=== PATIENT | female | born 1960 | race Caucasian/White ===

== ENCOUNTER 2018-08-25 00:29 | Observation (INO) ==
[2018-08-25] MEDS ORDERED: Naloxone 0.4 MG/ML INJ IVP PRN (02:26)
[2018-08-25] MEDS ORDERED: 0.9 % Sodium Chloride 1,000 ML IVC SCH (02:30)
--- NOTE | 2018-08-25 02:42 | Internal Med History&Physical ---
Date of Encounter: 08/25/18 Time of Encounter: 02:36 Internal Medicine - H&P: HPI Chief complaint: Seizure History of present illness: Ms. Wilkerson is a 58 year old female with a past medical history of hypertension, coronary artery disease, smoking history, COPD, bipolar disorder, depression, and Sabine's disease who initially presented to [facility] due to hailey nge in mental status. Per report patient presented to [facility] with odd behavior, reporting that there was Percocet in the ventilation system. Laboratory findings were notable for a sodium of 127. While at [facility] patient had a witnessed seizure. No previous history of seizures. CT scan of the head was unremarkable. Patient was given fluids and her sodium went from 127 to 129. Patient was transferred for further evaluation. When I assessed the patient, she appears to be alert oriented 3 and coherent, stating that she called the squad because of bilateral lower extremity numbness that seemed to travel up both legs. She denies any weakness per se. Patient further denies any recent illnes s, alcohol or IV drug use, or changes in her medication. Patient currently smokes 2 packs per day. Urine toxicology performed at [facility] was also unremarkable. Currently clinically stable. Past Med Surg Social Fam HX - Past Medical History Medical history: COPD, hypertension, other Additional medical history: Tevin's Dx. Psychiatric history: anxiety, bipolar, depression - Past Surgical History Additional surgical history: right foot. right wrist - Social History Smoking Status: Current every day smoker Smokeless Tobacco Status: No Alcohol use: none Drug use: none - Family History Mother Hx Family Cardiac Disorders: Yes (heart disease) Hx Family Neurologic Disorders: Yes (cva) Father Living Status: Hx Family Cardiac Disorders: Yes (mi) Sister Hx Family Autoimmune Disorders: Yes (huntingtons) Internal Medicine - H&P: Meds Amitriptyline [Elavil] 25 mg PO HS 11/10/17 [History] Lisinopril [Zestril] 10 mg PO DAILY 11/10/17 [History] diazePAM [Valium] 5 mg PO TID 11/10/17 [History] Potassium Chloride 40 meq PO ONCE #5 tab.er.prt 05/22/18 [Rx] Clopidogrel [Plavix] 75 mg PO DAILY 08/25/18 [History] Ibuprofen [Ibu] 800 mg PO TID 08/25/18 [History] Allergy/AdvReac Type Severity Reaction Status Date / Time amlodipine [From Norvasc] Allergy Anaphylaxis Verified 07/03/18 17:28 hydrocodone [From Vicodin] Allergy Vomiting Verified 07/03/18 17:28 diphenhydramine AdvReac Shakiness Verified 08/25/18 02:30 [From Benadryl] All Systems PM: A 10-system review of systems was performed and is negative for pertinent findings except as documented above in the HPI. - Constitutional Constitutional: no chills, no fever(s), no night sweats - EENT Eyes: no change in vision, no discharge, no pain, no photophobia Ears: no ear discharge, no ear pain, no tinnitus Nose, mouth and throat: no dysphagia, no nasal discharge, no neck pain, no sore throat - Cardiovascular Cardiovascular ROS IM: no chest pain, no diaphoresis, no dyspnea, no lightheadedness, no palpitations, no syncope - Respiratory Respiratory: no cough, no dyspnea, no wheezing, no excessive phlegm production - Gastrointestinal Gastrointestinal: no abdominal pain, no diarrhea, no hematemesis, no hematochezia, no melena, no nausea, no vomiting - Genitourinary Genitourinary: no change in urinary stream, no dysuria, no flank pain, no hematuria - Musculoskeletal Musculoskeletal ROS IM: no numbness, no tingling - Integumentary Integumentary IM: no rash, no unusual bruising - Neurological Neurological ROS: no confusion, no convulsions, no focal weakness, no numbness, no tingling, no tremor(s) - Hematologic/Lymphatic Hematologic/Lymphatic: no easy bruising - Constitutional Exam: General: Alert and oriented 3 Skin:Normal color, no rash, no lesions. HEENT:EOM, pupils equal, round and reactive. Cardiovascular:Normal S1 & S2, no rubs, murmurs or gallops. No JVD. Pulse regular. Lungs:Normal breath sounds, no wheezes or crackles. Abdomen:Soft, non-tender, no rigidity. Extremities:No deformity, no edema or tenderness, no joint swelling or clubbing. Neurological:Normal cognition and motor skills. Cranial nerves II through XII intact. No dysmetria. Muscle strength in the upper and lower extremities 5 out of 5 bilaterally Pulses:Carotid and radial pulses normal +2. Rest of the physical exam is non contributory Internal Med - H&P Results - Labs CBC & Chem 7: 08/25/18 02:49 08/25/18 02:49 - Assessment and plan (1) Seizure Current Visit: Yes Status: Acute Assessment and plan: New-onset seizure disorder in the setting of mild hyponatremia 127. CT scan of the head was unremarkable. Patient denies any history of alcohol or drug use. Urine toxicology was negative. No reports of recent illness or changes in her medication. She is on amitriptyline and Valium. Patient currently neurol ogically intact and alert oriented 3. Sodium is improved to 130. No other electrolyte abnormalities. Low suspicion for stroke. Bilateral reported lower extremity numbness appears to have resolved. -We will continue neuro checks -Seizure precautions -PRN Ativan -Slowly correct sodium. -We will obtain MRI of the brain to rule out any structural abnormalities. -Neurology consult. (2) Hyponatremia Current Visit: Yes Status: Acute Assessment and plan: Patient found to have a sodium of 127 as well as hypochloremia. Sodium now 130. She does report poor by mouth intake. -Continue gentle hydration with normal saline. -Repeat sodium -We will obtain urine studies (3) Delirium Current Visit: Yes Status: Acute Assessment and plan: Patient has a history of bipolar disorder and Sabine's disease. Currently does not display evidence of delirium or psychosis. Unclear of hyponatremia contributing to patient's reported odd behavior. Mental status does however seem to be improved after slight correction of her sodium. TSH did appear to be slightly low per lab work obtained at [facility]. We will repeat TSH here. -Would appreciate psych consult. (4) Hypertension Current Visit: Yes Status: Acute Assessment and plan: Blood pressure stable. Monitor Qualifiers: Hypertension type: unspecified Qualified Code(s): I10 - Essential (primary) hypertension (5) COPD (chronic obstructive pulmonary disease) Current Visit: Yes Status: Acute Assessment and plan: History of COPD. Patient does not appear to be in acute exacerbation. Qualifiers: Emphysema type: unspecified Qualified Code(s): J43.9 - Emphysema, unspecified (6) DVT prophylaxis Current Visit: Yes Status: Acute Assessment and plan: Subcutaneous heparin - Time Spent With Patient Total time spent is greater than 50% in coordination of care (as documented) at patient's floor/unit and/or counseling patient:
[2018-08-25] MEDS ORDERED: Acetaminophen 325 MG TABLET PO PRN (02:54)
[2018-08-25] MEDS ORDERED: *HR* LORazepam 2 MG/ML VIAL IVP PRN (02:54)
[2018-08-25 03:13] LABS: Basophils % 0.3 %; Eosinophils % 0.1 %; Hematocrit 38.2 % (35.3-44.9); Hemoglobin 13.7 g/dL (11.5-15.4); Immature Granulocytes % 0.4 % (0-4); Lymphocytes # 1.4 K/mcL (0.6-4.6); Lymphocytes % 12.1 %; Mean Corpuscular HGB Conc 35.9 g/dL (31.6-35.5); Mean Corpuscular Hemoglobin 32.7 pg (28.0-33.3); Mean Corpuscular Volume 91.2 fL (83.0-100.0); Mean Platelet Volume 11.1 fL (9.4-12.4); Monocytes # 1.1 K/mcL (0.0-1.3); Monocytes % 9.3 %; Neutrophils # 8.8 K/mcL (1.6-8.9); Platelet Count 244 K/mcL (140-400); Red Blood Count 4.19 M/mcL (3.82-4.97); Red Cell Distribution Width 11.6 % (11.5-14.5); Segmented Neutrophils % 77.8 %
[2018-08-25 03:24] LABS: INR 0.9; Prothrombin Time 10.6 Seconds (9.4-12.1)
[2018-08-25 03:29] LABS: Alanine Aminotransferase 18 Units/L (7-52); Albumin 3.9 g/dL (3.5-5.7); Albumin/Globulin Ratio 2.2 (1.1-2.2); Alkaline Phosphatase 86 Units/L (34-104); Aspartate Amino Transferase 55 Units/L (13-39); BUN/Creatinine Ratio 12 (6-26); Bilirubin,Total 1.5 mg/dL (0.3-1.0); Blood Urea Nitrogen 6 mg/dL (6-20); Calcium 9.2 mg/dL (8.6-10.3); Carbon Dioxide 23 mEq/L (23-29); Chloride 97 mEq/L (98-107); Globulin 1.8 g/dL (2.4-3.5); Glucose 61 mg/dL (70-105); Magnesium 1.8 mg/dL (1.6-2.6); Osmolality,Calculated 266 (280-300); Phosphorous 4.5 mg/dL (2.7-4.5); Sodium 130 mEq/L (136-145); Total Protein 5.7 g/dL (6.4-8.9); eGFR For Non-African Americans > 60 (> 60)
[2018-08-25 03:30] LABS: Troponin I < 0.03 ng/mL (< 0.04)
[2018-08-25 05:38] LABS: Thyroid Stimulating Hormone 0.223 mcIU/mL (0.340-5.600)
[2018-08-25] MEDS: Ibuprofen 800 MG TABLET PO SCH ×2 (05:45→07:54)
[2018-08-25] MEDS ORDERED: *HR* Heparin 5,000 UNIT/ML VIAL SQ SCH (06:00)
[2018-08-25] MEDS ORDERED: Dextrose Gel 15 GM/37.5 ML TUBE PO PRN ×2 (06:09)
[2018-08-25] MEDS ORDERED: *HR* Dextrose 50 % in Water (Syg) 50 ML SYRINGE IVP PRN (06:09)
[2018-08-25] MEDS ORDERED: D5% in Water 1,000 ML IVC PRN (06:09)
[2018-08-25 07:51] VITALS: BP 99/71
[2018-08-25] MEDS ORDERED: Nicotine 14 MG PATCH.TD24 TD SCH (09:00)
[2018-08-25] MEDS ORDERED: diazePAM 5 MG TABLET PO SCH (09:00)
--- NOTE | 2018-08-25 09:14 | Neurology - Consult Note ---
Date of Encounter: 08/25/18 Time of Encounter: 08:15 Assessment and Plan (1) Witnessed seizure-like activity Status: Acute Patient seemed to have a witnessed seizure-like activity while in the emergency room she denies any history of seizures in the past she did have significantly low-sodium perhaps the main precipitating factor. We will review the EEG at the same time suggest imaging studies sodium need to be corrected but slowly to a wide any CPM Continue to monitor for any cardiac arrhythmias or any other seizure-like activity Other treatment is as per primary team No other focal findings noted on examination and the clinical context it could be related to the hyponatremia strongly recommend that we should continue to treat underlying metabolic abnormalities. As far as diagnosis of Napoleon is concern patient not sure that she even have any testing done or not she denies being seen by any neurologist. I did reviewed her ECW , record there was no past medical history of Tevin disease reported neither any blood test with the diagnosis of Tevin disea se. On examination also did not see any typical Tevin Chorea. It is a concern patient need to be evaluated in the neurology clinic for further detailed family history as well as workup it is a concern off HD (2) Hyponatremia Status: Acute History of Present Illness HPI: Ms. Wilkerson is a 58 year old female with past medical history of hypertension, coronary artery disease, smoking history, COPD, bipolar disorder, depression, and ?? histor of Napoleon's disease, who initially presented to [facility] due to change in mental status. Per report patient presented to [facility] with odd behavior, reporting that there was Percocet in the ventilation system. she was found to have low sodium of 127. While at [facility] patient had a witnessed seizure. No previous history of seizures. CT scan of the head was unremarkable. Patient was given fluids and her sodium went from 127 to 129. Patient was transferred for further evaluation. Pt is now alert oriented 3 . She denies any weakness per se. Patient further denies any recent illness, alcohol or IV drug use, or changes in her medication. Patient currently smokes 2 packs per day. she is not able to give much info about her diagnosis of HD. Past Med Surg Social Fam HX - Past Medical History Medical history: COPD, hypertension, other Additional medical history: Napoleon's Dx. Psychiatric history: anxiety, bipolar, depression - Past Surgical History Additional surgical history: right foot. right wrist - Social History Smoking Status: Current every day smoker Smokeless Tobacco Status: No Alcohol use: none Drug use: none - Family History Mother Hx Family Cardiac Disorders: Yes (heart disease) Hx Family Neurologic Disorders: Yes (cva) Father Living Status: Hx Family Cardiac Disorders: Yes (mi) Sister Hx Family Autoimmune Disorders: Yes (huntingtons) Medications and Allergies Amitriptyline [Elavil] 25 mg PO HS 11/10/17 [History] Lisinopril [Zestril] 10 mg PO DAILY 11/10/17 [History] diazePAM [Valium] 5 mg PO TID 11/10/17 [History] Albuterol Sulfate [Ventolin Hfa] 1 - 2 puff IN QID PRN 08/25/18 [History] Clopidogrel [Plavix] 75 mg PO DAILY 08/25/18 [History] Diphenoxylate/Atropine [Lomotil 2.5 mg/0.025 mg] 1 tab PO QID PRN 08/25/18 [History] Ibuprofen [Ibu] 800 mg PO Q8H PRN 08/25/18 [History] Magnesium Oxide [Magnesium] 250 mg PO DAILY 08/25/18 [History] Potassium Chloride [K-Tab ER] 20 meq PO DAILY 08/25/18 [History] Allergy/AdvReac Type Severity Reaction Status Date / Time amlodipine [From Norvasc] Allergy Anaphylaxis Verified 07/03/18 17:28 hydrocodone [From Vicodin] Allergy Vomiting Verified 07/03/18 17:28 diphenhydramine AdvReac Shakiness Verified 08/25/18 02:30 [From Benadryl] All Systems: The remainder of the systems were reviewed and are negative Physical Examination - Vital Signs Vital Signs: Initial Vital Signs Temp Pulse Resp BP Pulse Ox 98.7 F 82 16 117/70 95 08/25/18 03:39 08/25/18 03:39 08/25/18 03:39 08/25/18 03:39 08/25/18 03:39 - Exam Exam: GENERAL: Comfortable in no acute distress HEENT: Normal LUNGS: CTA HEART: RRR, S1 S2 Audible, no murmur EXTREMITIES: No Pedal edema. DETAILED NEUROLOGICAL EXAMINATION: MENTAL STATUS: Oriented to person, place, date and situation. Recent Memory Intact, Attention span is normal , Feels tired aloof did not want to talk much about eating breakfast Cranial Nerve Examination: CN - II: Visual Acuity, Field of Vision Normal, Fundus examination: No disk edema, Pupils- size shape reaction to light and accommodation: All normal. CN III, IV, : External ocular movements were intact, Pupils were reactive, Nodrooping of the eyelids CN V: Sensation over the face to light touch and pinprick all normal. Corneal reflexes not tested, jaw jerk normal. CN VII: No facial asymmetry, no flattening of nasolabial folds, no difficulty in closing the eyes, no loss of forehead wrinkles, no difficulty in eye-closure, frowning raising eyebrows. CNVIII: No significant hearing loss CN IX, X: Uvula centralized not deviated, Gag reflex: Not tested CN X1: Sternocleidomastoid, trapezius, normal or evidence of any weakness. CN X11: No Dysarthria, no wasting or fibrilation f tongue muscles, no deviation, tongue muscle strength normal. Motor examination: No hypertrophy, tone was normal, power grade 0-5 Upper limbs Proximal- No difficulty in lifting the arms above the head. Distal- No weakness in distal muscles On formal testing 5/5 all over Lower limbs On formal testing 5/5 all over Coordination: [id number] normal. Target pursuit normal finger tapping normal, Rapid alternating moment of wrist normal Sensory system: Superficial sensations- Touch normal. Pain- Pinprick, Temperature all normal, Deep sensation normal, Joint position sense normal. Cortical sensation, Tactile discrimination, localization and extinction all normal. Deep tendon reflexes. Symmetrical bilateral, No evidence of Babinski. No sign of meningeal irritation Gait Examination: Deferred - Constitutional General appearance: comfortable Results - Laboratory Findings CBC and BMP: 08/25/18 02:49 08/25/18 02:49 Abnormal lab findings: Abnormal lab results WBC 11.4 K/mcL (4.3-11.1) H 08/25/18 02:49 MCHC 35.9 g/dL (31.6-35.5) H 08/25/18 02:49 Sodium 130 mEq/L (136-145) L 08/25/18 02:49 Chloride 97 mEq/L (98-107) L 08/25/18 02:49 Creatinine 0.51 mg/dL (0.60-1.20) L 08/25/18 02:49 Glucose 61 mg/dL (70-105) L 08/25/18 02:49 Calculated Osmolality 266 (280-300) L 08/25/18 02:49 Total Bilirubin 1.5 mg/dL (0.3-1.0) H 08/25/18 02:49 AST 55 Units/L (13-39) H 08/25/18 02:49 Creatine Kinase 265 Units/L (30-223) H 08/25/18 02:49 Serum Total Protein 5.7 g/dL (6.4-8.9) L 08/25/18 02:49 Globulin 1.8 g/dL (2.4-3.5) L 08/25/18 02:49 TSH 0.223 mcIU/mL (0.340-5.600) L 08/25/18 02:49 Consult Discharge Plan - Plan Instructions: Hyponatremia (DC) Referrals: Raj Dawson MD [Partnered Physician] - (referral made for follow up in 2-3 weeks) NONE,PCP [Primary Care Provider] - Virginia Perez MD [Non-Partnered Physician] - 09/02/18 10:00 am
--- NOTE | 2018-08-25 09:54 | Discharge Summary ---
<Gillian Kilgore P - Last Filed: 08/25/18 10:10> - NOTES TO OUTPATIENT PROVIDER Notes to Outpatient Provider: *The patient will follow-up with primary care provider within a week. *Patient with follow-up with the neurologist within 23 weeks. *She will do EEG in outpatient visit with neurologist and does not want to do MRI. *The patient will not drive her car for now. Orders not resulted at time of discharge: Pending orders 08/25/18 02:26 Urinalysis reflex Microscopic [URIN] Routine 08/25/18 02:33 Urine tox screen [Drug Screen, Urine] [UCHEM] Routine 08/25/18 02:34 MR head/brain wo con [MR] Routine Date of Encounter: 08/25/18 Time of Encounter: 08:45 - Discharge Diagnosis (1) Witnessed seizure-like activity Priority: Primary Status: Acute (2) Hyponatremia Priority: Primary Status: Acute (3) COPD (chronic obstructive pulmonary disease) Priority: Secondary Status: Chronic Qualifiers: Emphysema type: unspecified Qualified Code(s): J43.9 - Emphysema, unspecified (4) CAD (coronary artery disease) Priority: Secondary Status: Chronic Qualifiers: Coronary Disease-Associated Artery/Lesion type: unspecified vessel or lesion type Associated angina: angina presence unspecified Qualified Code(s): I25.10 - Atherosclerotic heart disease of [place] coronary artery without angina pectoris (5) DVT prophylaxis Priority: Primary Status: Suspected Hospital course: Ms. Wilkerson is a 58 year old female with past medical history of COPD, hypertension, Tevin's disease,, bipolar disorder, depression, CAD, COPD, chronic smoker presented for altered mental status , odd behavior and witnessed seizure in [facility]. Her CT scan of head done in ED was unremarkable and serum sodium was 127. She was referred to this hospital and she was admitted in inpatient for further workup and management. The patient has had dehydration and low serum sodium level and after IV fluid the serum sodium level came up to 130 and dehydration has been resolved. Neurology consultation has been done and suggested EEG. The patient wants to go home and we will do EEG during her outpatient visit with neurologist. Today patient is stable, well oriented to time, place and person not in acute distress. She does not have any seizure right now. Her vitals are stable. The patient is requesting to go home and she does not like to do he MRI because of cost. We are sending her home and she will follow-up with primary care provider within a week and neurology physician within 2 to 3 week. We have counseled about quitting smoking but she is not ready to do that. - Time Spent with Patient Total time spent providing and/or coordinating discharge services: - Discharge Medications Home Medications: RX: Amitriptyline [Elavil] 25 mg PO HS 11/10/17 [History] RX: Lisinopril [Zestril] 10 mg PO DAILY 11/10/17 [History] RX: diazePAM [Valium] 5 mg PO TID 11/10/17 [History] RX: Albuterol Sulfate [Ventolin Hfa] 1 - 2 puff IN QID PRN 08/25/18 [History] RX: Clopidogrel [Plavix] 75 mg PO DAILY 08/25/18 [History] RX: Diphenoxylate/Atropine [Lomotil 2.5 mg/0.025 mg] 1 tab PO QID PRN 08/25/18 [History] RX: Ibuprofen [Ibu] 800 mg PO Q8H PRN 08/25/18 [History] RX: Magnesium Oxide [Magnesium] 250 mg PO DAILY 08/25/18 [History] RX: Potassium Chloride [K-Tab ER] 20 meq PO DAILY 08/25/18 [History] Allergies/Adverse Reactions: Allergy/AdvReac Type Severity Reaction Status Date / Time amlodipine [From Norvasc] Allergy Anaphylaxis Verified 07/03/18 17:28 hydrocodone [From Vicodin] Allergy Vomiting Verified 07/03/18 17:28 diphenhydramine AdvReac Shakiness Verified 08/25/18 02:30 [From Benadryl] Date of admission: 08/25/18 02:03 Primary care physician: PCP NONE Consults: 08/25/18 02:25 Consult to Neurology [CONS] Routine Consulting Provider: [facility] Reason for Consult: New onset seizure in the setting of hyponatremia. Call Completed: No Consult to Psychiatry [CONS] Routine Consulting Provider: Psychiat[facility] Reason consult: Altered mental status - Constitutional Vitals: Temp Pulse Resp BP Pulse Ox 98.6 F 90 16 99/71 96 08/25/18 07:49 08/25/18 07:49 08/25/18 07:49 08/25/18 07:49 08/25/18 08:10 General appearance: Present: A&O X 3, no acute distress, answers questions appropriately Exam: :Geneal Alert and oriented 3 Skin:Normal color, no rash, no lesions. HEENT:EOM, pupils equal, round and reactive. Cardiovascular:Normal S1 & S2, no rubs, murmurs or gallops. No JVD. Pulse regular. Lungs:Normal breath sounds, no wheezes or crackles. Abdomen:Soft, non-tender, no rigidity. Extremities:No deformity, no edema or tenderness, no joint swelling or clubbing. Neurological:Normal cognition and motor skills. Cranial nerves II through XII intact. No dysmetria. Muscle strength in the upper and lower extremities 5 out of 5 bilaterally Pulses:Carotid and radial pulses normal +2. Rest of the physical exam is non contributory - Patient Status Disposition: Home, Self-Care Condition: Fair Overall status at discharge: patient is progressing back to baseline - Discharge Instructions Instructions: Hyponatremia (DC) Follow Up With: Raj Dawson MD [Partnered Physician] - (referral made for follow up in 2-3 weeks) NONE,PCP [Primary Care Provider] - Virginia Perez MD [Non-Partnered Physician] - 09/02/18 10:00 am - Diet and Activity Activity: resume usual activities as tolerated Diet: low fat, low cholesterol <Thallapaneni,Rambabu - Last Filed: 08/25/18 14:21> Orders not resulted at time of discharge: Pending orders 08/25/18 02:26 Urinalysis reflex Microscopic [URIN] Routine 08/25/18 02:33 Urine tox screen [Drug Screen, Urine] [[facility]] Routine Date of Encounter: 08/25/18 - Discharge Diagnosis (1) Seizure Status: Acute (2) Hyponatremia Status: Acute (3) Delirium Status: Acute (4) DVT prophylaxis Status: Suspected (5) Hypertension Status: Acute Qualifiers: Hypertension type: unspecified Qualified Code(s): I10 - Essential (primary) hypertension (6) COPD (chronic obstructive pulmonary disease) Status: Chronic Qualifiers: Emphysema type: unspecified Qualified Code(s): J43.9 - Emphysema, unspecified Hospital course: Ms. Wilkerson is a 58 year old female - Time Spent with Patient Total time spent providing and/or coordinating discharge services: Date of admission: 08/25/18 02:03 Primary care physician: PCP NONE Consults: 08/25/18 02:25 Consult to Neurology [CONS] Routine Consulting Provider: Neu[facility] Reason for Consult: New onset seizure in the setting of hyponatremia. Call Completed: No Consult to Psychiatry [CONS] Routine Consulting Provider: Psychiat[facility] [facility] Reason consult: Altered mental status - Constitutional Vitals: Temp Pulse Resp BP Pulse Ox 98.6 F 90 16 99/71 96 08/25/18 07:49 08/25/18 07:49 08/25/18 07:49 08/25/18 07:49 08/25/18 08:10 - Attending Attestation I examined this patient and my medical decision-making was reviewed with the Resident Physician Dr. Kilgore. I agree with the documented findings, disposition and treatment plan as described except to the extent set forth below. Ms. Wilkerson is a 58 year old female with a past medical history of hypertension, coronary artery disease, smoking history, COPD, bipolar disorder, depression, and [place]'s disease who initially presented to [facility] due to change in mental status and generalized weakness Per report patient presented to [facility] with odd behavior. Laboratory findings were notable for a sodium of 127. While at [facility] patient had a witnessed seizure. No previous history of seizures. CT scan of the head was unremarkable. Patient was given fluids and her sodium went from 127 to 129. Patient was transferred to our facility for further evaluation. Patient was admitted in the hospital and placed her on IV hydration. Her sodium improved to 130. Patient was evaluated by neurologist who recommend further workup EEG and MRI. However patient refused to go for any of studies, since she is worried about hospital bills. She wanted to have this studies done as an out pt through her PCP. She adamantly refused to have any further work up and wanted to leave today. I did talk to pt's son at bed side along with pt, pt still refused to have any further work up. I did ask the pt not to drive until she f/u with PCP and Neurology in 1 week. Her seizure might be due to hyponatremia and it was first episode too, so she does not need to be on any anticonvulsant medications. Gen: A, A, O x3 Chest: Diminished BS b/l No crackles, No rales Heart: S1S2+ RRR
== END 2018-08-25 10:34 | disposition home or self-care (01) ==
LOC: 3BNU
PROVIDERS: ADMIT Internal Medicine; ATTEND Internal Medicine

== ENCOUNTER 2020-05-11 17:54 | Inpatient (IN) ==
[2020-05-11] MEDS ORDERED: 0.9 % Sodium Chloride 1,000 ML IV ONE (18:54)
[2020-05-11] MEDS ORDERED: Ondansetron 4 MG/2 ML VIAL IVP ONE (18:55)
[2020-05-11 19:23] LABS: Basophils % 0.2 %; Eosinophils % 0.2 %; Hematocrit 48.7 % (35.3-44.9); Hemoglobin 16.4 g/dL (11.5-15.4); Immature Granulocytes % 0.2 % (0-4); Lymphocytes # 1.5 K/mcL (0.6-4.6); Lymphocytes % 12.2 %; Mean Corpuscular HGB Conc 33.7 g/dL (31.6-35.5); Mean Corpuscular Hemoglobin 30.9 pg (28.0-33.3); Mean Corpuscular Volume 91.7 fL (83.0-100.0); Mean Platelet Volume 10.7 fL (9.4-12.4); Monocytes % 8.5 %; Neutrophils # 9.6 K/mcL (1.6-8.9); Platelet Count 319 K/mcL (140-400); Red Blood Count 5.31 M/mcL (3.82-4.97); Red Cell Distribution Width 12.1 % (11.5-14.5); Segmented Neutrophils % 78.7 %; White Blood Count 12.2 K/mcL (4.3-11.1)
[2020-05-11 19:36] LABS: Bilirubin,Urine Negative (Negative); Blood,Urine Negative (Negative); Clarity,Urine Clear (Clear); Color,Urine Colorless (Yellow); Glucose,Urine (UA) Normal (Normal); Ketones,Urine Negative (Negative); Leukocyte Esterase,Urine Negative (Negative); Nitrite,Urine Negative (Negative); Protein,Urine Negative (Neg-Trace); Specific Gravity,Urine 1.005 (1.010-1.025); Urobilinogen,Urine Normal (Normal)
[2020-05-11 19:44] LABS: Acetaminophen < 10 mcg/mL (10-20); Alanine Aminotransferase 12 Units/L (7-52); Albumin 5.2 g/dL (3.5-5.7); Albumin/Globulin Ratio 1.7 (1.1-2.2); Alkaline Phosphatase 103 Units/L (34-104); Aspartate Amino Transferase 56 Units/L (13-39); BUN/Creatinine Ratio 10 (6-26); Bilirubin,Direct 0.1 mg/dL (0.0-0.2); Bilirubin,Total 1.1 mg/dL (0.3-1.0); Blood Urea Nitrogen 6 mg/dL (6-20); Calcium 10.8 mg/dL (8.6-10.3); Carbon Dioxide 30 mEq/L (23-29); Chloride 95 mEq/L (98-107); Chol/HDL Ratio 2.6 (0-4.9); Cholesterol 207 mg/dL (< 200); Ethanol < 10 mg/dL (Less than 10); Globulin 3.1 g/dL (2.4-3.5); Glucose 96 mg/dL (70-105); HDL Cholesterol 80 mg/dL (40-59); LDL Cholesterol,Calculated 108 mg/dL (< 100); Lipase 16 Units/L (11-82); Osmolality,Calculated 275 (280-300); Potassium 4.3 mEq/L (3.5-5.1); Salicylate < 2.5 mg/dL (15.0-30.0); Sodium 134 mEq/L (136-145); Total Protein 8.3 g/dL (6.4-8.9); Triglycerides 94 mg/dL (< 150); eGFR For African Americans > 60 (> 60); eGFR For Non-African Americans > 60 (> 60)
[2020-05-11 19:51] LABS: Amphetamine Screen,Urine Negative ng/mL (Cutoff=1000); Barbiturate Screen,Urine Negative ng/mL (Cutoff=200); Benzodiazepines Screen,Urine Positive ng/mL (Cutoff=200); Cannabinoid Screen,Urine Negative ng/mL (Cutoff = 50); Cocaine Screen,Urine Negative ng/mL (Cutoff= 300); Opiate Screen,Urine Positive ng/mL (Cutoff=300); Phencyclidine Screen,Urine Negative ng/mL (Cutoff=25)
[2020-05-11 19:53] LABS: Estimated Average Glucose 117 mg/dl
[2020-05-11] MEDS ORDERED: Isovue-370 500 ML BOTTLE IVP ONE (20:42)
[2020-05-11] MEDS ORDERED: Promethazine 12.5 MG in 0.9 % Sodium Chloride 50 ML IVPB PRN (23:27)
[2020-05-12] MEDS ORDERED: Ondansetron 4 MG/2 ML VIAL IVP PRN (00:58)
[2020-05-12] MEDS ORDERED: Naloxone 0.4 MG/ML INJ IVP PRN (00:58)
[2020-05-12 02:08] LABS: Basophils % 0.2 %; Eosinophils % 0.3 %; Immature Granulocytes % 0.2 % (0-4); Lymphocytes # 1.6 K/mcL (0.6-4.6); Lymphocytes % 18.2 %; Mean Corpuscular HGB Conc 33.6 g/dL (31.6-35.5); Mean Corpuscular Hemoglobin 30.9 pg (28.0-33.3); Mean Corpuscular Volume 92.1 fL (83.0-100.0); Mean Platelet Volume 10.6 fL (9.4-12.4); Monocytes # 0.9 K/mcL (0.0-1.3); Monocytes % 9.9 %; Neutrophils # 6.2 K/mcL (1.6-8.9); Platelet Count 264 K/mcL (140-400); Red Blood Count 4.56 M/mcL (3.82-4.97); Red Cell Distribution Width 12.4 % (11.5-14.5); Segmented Neutrophils % 71.2 %; White Blood Count 8.7 K/mcL (4.3-11.1)
[2020-05-12 02:11] LABS: Hemoglobin 14.1 g/dL (11.5-15.4)
[2020-05-12 02:12] LABS: Prothrombin Time 11.9 Seconds (9.4-12.1)
[2020-05-12 02:27] LABS: Alanine Aminotransferase 11 Units/L (7-52); Albumin/Globulin Ratio 1.7 (1.1-2.2); Alkaline Phosphatase 91 Units/L (34-104); Aspartate Amino Transferase 42 Units/L (13-39); BUN/Creatinine Ratio 12 (6-26); Bilirubin,Total 1.1 mg/dL (0.3-1.0); Blood Urea Nitrogen 6 mg/dL (6-20); Calcium 9.2 mg/dL (8.6-10.3); Carbon Dioxide 26 mEq/L (23-29); Chloride 104 mEq/L (98-107); Globulin 2.3 g/dL (2.4-3.5); Glucose 84 mg/dL (70-105); Magnesium 1.9 mg/dL (1.6-2.6); Osmolality,Calculated 283 (280-300); Phosphorous 3.7 mg/dL (2.7-4.5); Potassium 4.2 mEq/L (3.5-5.1); Sodium 138 mEq/L (136-145); Total Protein 6.3 g/dL (6.4-8.9); eGFR For African Americans > 60 (> 60); eGFR For Non-African Americans > 60 (> 60)
[2020-05-12] MEDS ORDERED: Albuterol 2.5 MG/3 ML NEBULIZER IH PRN (07:55)
[2020-05-12] MEDS ORDERED: diazePAM 5 MG TABLET PO SCH (09:00)
[2020-05-12] MEDS: Aspirin Enteric Coated 81 MG Tablet PO SCH (10:07)
[2020-05-12] MEDS: lisinopriL 10 MG TABLET PO SCH (10:07)
[2020-05-12] MEDS: Nicotine 14 MG PATCH.TD24 TD SCH (12:00)
[2020-05-12] MEDS: ALPRAZolam 1 MG TABLET PO ONE ×2 (13:31→13:33)
[2020-05-12] MEDS: QUEtiapine Fumarate 25 MG TABLET PO SCH (21:28)
[2020-05-13] MEDS: QUEtiapine Fumarate 25 MG TABLET PO SCH ×2 (09:08→20:26)
[2020-05-13] MEDS: Aspirin Enteric Coated 81 MG Tablet PO SCH (09:08)
[2020-05-13] MEDS: Nicotine 14 MG PATCH.TD24 TD SCH (09:08)
[2020-05-13] MEDS: lisinopriL 10 MG TABLET PO SCH (09:08)
[2020-05-13] MEDS: Metoprolol XL (24 HR) Succ 25 MG TAB.ER.24H PO SCH (11:10)
[2020-05-13] MEDS ORDERED: *HR* LORazepam 2 MG/ML VIAL IVP ONE ×2 (16:55→23:18)
[2020-05-13] MEDS ORDERED: Valproic Acid INJ 1,000 MG in 0.9 % Sodium Chloride 100 ML IVPB STA (16:56)
[2020-05-13] MEDS: *HR* Heparin 5,000 UNIT/ML VIAL SQ SCH (17:44)
[2020-05-14] MEDS ORDERED: QUEtiapine Fumarate 25 MG TABLET PO ONE (00:56)
[2020-05-14] MEDS: *HR* Heparin 5,000 UNIT/ML VIAL SQ SCH ×2 (06:20→16:20)
[2020-05-14] MEDS ORDERED: Valproic Acid INJ 500 MG in 0.9 % Sodium Chloride 100 ML IVPB SCH (10:00)
[2020-05-14] MEDS: Metoprolol XL (24 HR) Succ 25 MG TAB.ER.24H PO SCH (10:18)
[2020-05-14] MEDS: Aspirin Enteric Coated 81 MG Tablet PO SCH (10:19)
[2020-05-14] MEDS: Nicotine 14 MG PATCH.TD24 TD SCH (10:19)
[2020-05-14] MEDS: QUEtiapine Fumarate 25 MG TABLET PO SCH (10:19)
[2020-05-14] MEDS: lisinopriL 10 MG TABLET PO SCH (10:20)
[2020-05-14] MEDS: Valproic Acid INJ 500 MG in 0.9 % Sodium Chloride 100 ML IVPB SCH ×2 (13:04→23:56)
[2020-05-14 13:24] LABS: Basophils % 0.1 %; Eosinophils % 0.2 %; Hemoglobin 15.2 g/dL (11.5-15.4); Immature Granulocytes % 0.3 % (0-4); Lymphocytes # 1.3 K/mcL (0.6-4.6); Lymphocytes % 14.3 %; Mean Corpuscular HGB Conc 33.8 g/dL (31.6-35.5); Mean Corpuscular Hemoglobin 31.2 pg (28.0-33.3); Mean Corpuscular Volume 92.4 fL (83.0-100.0); Mean Platelet Volume 10.8 fL (9.4-12.4); Monocytes # 0.5 K/mcL (0.0-1.3); Neutrophils # 6.9 K/mcL (1.6-8.9); Platelet Count 295 K/mcL (140-400); Red Blood Count 4.87 M/mcL (3.82-4.97); Segmented Neutrophils % 79.1 %; White Blood Count 8.8 K/mcL (4.3-11.1)
[2020-05-14 13:49] LABS: BUN/Creatinine Ratio 21 (6-26); Blood Urea Nitrogen 12 mg/dL (6-20); Calcium 9.4 mg/dL (8.6-10.3); Carbon Dioxide 23 mEq/L (23-29); Chloride 101 mEq/L (98-107); Glucose 174 mg/dL (70-105); Magnesium 1.8 mg/dL (1.6-2.6); Osmolality,Calculated 286 (280-300); Phosphorous 4.4 mg/dL (2.7-4.5); Potassium 3.7 mEq/L (3.5-5.1); Sodium 136 mEq/L (136-145); eGFR For African Americans > 60 (> 60); eGFR For Non-African Americans > 60 (> 60)
[2020-05-14 13:57] LABS: Thyroid Stimulating Hormone 0.35 mcIU/mL (0.340-5.600)
[2020-05-14] MEDS ORDERED: diazePAM 5 MG TABLET PO ONE ×2 (15:46→23:56)
[2020-05-14] MEDS: *HR* LORazepam 2 MG/ML VIAL IVP SCH (15:52)
[2020-05-14] MEDS ORDERED: *HR* LORazepam 2 MG/ML VIAL IVP ONE (21:11)
[2020-05-15] MEDS: QUEtiapine Fumarate 25 MG TABLET PO SCH ×3 (02:34→08:51)
[2020-05-15] MEDS: *HR* Heparin 5,000 UNIT/ML VIAL SQ SCH (05:54)
[2020-05-15 06:33] VITALS: BP 115/81
[2020-05-15] MEDS: Metoprolol XL (24 HR) Succ 25 MG TAB.ER.24H PO SCH ×2 (08:30→08:51)
[2020-05-15] MEDS: Aspirin Enteric Coated 81 MG Tablet PO SCH ×2 (08:30→08:46)
[2020-05-15] MEDS: Valproic Acid INJ 500 MG in 0.9 % Sodium Chloride 100 ML IVPB SCH ×2 (08:31→08:51)
[2020-05-15] MEDS: *HR* LORazepam 2 MG/ML VIAL IVP SCH ×2 (08:31→08:46)
[2020-05-15] MEDS: Nicotine 14 MG PATCH.TD24 TD SCH (08:33)
[2020-05-15] MEDS ORDERED: *HR* OxyCODONE/APAP 7.5/325 TABLET PO PRN (09:05)
[2020-05-15] MEDS ORDERED: diazePAM 5 MG TABLET PO SCH (09:15)
== END 2020-05-15 11:09 | disposition home or self-care (01) | DRG 885 ==
LOC: EMEROOARM 17:54 → 3ANU 17:54 → SUATTDRO 23:46 → 3ANU 05-12 00:30 → SUATTDRO 05-13 16:30
PROVIDERS: ADMIT Internal Medicine; ATTEND Family Medicine

== ENCOUNTER 2020-07-23 20:53 | Observation (INO) ==
[2020-07-23] MEDS ORDERED: 0.9 % Sodium Chloride 1,000 ML IV ONE (22:06)
[2020-07-23] MEDS ORDERED: Potassium Chloride Elixir 20 MEQ/15 ML UDC PO ONE (22:53)
[2020-07-23] MEDS ORDERED: Ondansetron 4 MG/2 ML VIAL IVP PRN (22:58)
[2020-07-23] MEDS ORDERED: Naloxone 0.4 MG/ML INJ IVP PRN (22:58)
[2020-07-23] MEDS ORDERED: Potassium Chloride 20 MEQ, Lidocaine 1% 2 ML in 0.9 % Sodium Chloride 250 ML IVPB ONE (23:30)
[2020-07-24] MEDS ORDERED: Nicotine 14 MG PATCH.TD24 TD ONE (00:04)
[2020-07-24 00:28] LABS: Adenovirus Not Detected (Not Detect); Bordetella Pertussis Not Detected (Not Detect); Chlamydophila pneumoniae Not Detected (Not Detect); Coronavirus 229E Not Detected (Not Detect); Coronavirus HKU1 Not Detected (Not Detect); Coronavirus NL63 Not Detected (Not Detect); Coronavirus OC43 Not Detected (Not Detect); Human Metapneumovirus Not Detected (Not Detect); Human Rhinovirus/Enterovirus Not Detected (Not Detect); Influenza A Subtype 2009 H1 Not Detected (Not Detect); Influenza B Not Detected (Not Detect); Mycoplasma pneumoniae Not Detected (Not Detect); Parainfluenza Virus 1 Not Detected (Not Detect); Parainfluenza Virus 2 Not Detected (Not Detect); Parainfluenza Virus 3 Not Detected (Not Detect); Parainfluenza Virus 4 Not Detected (Not Detect); Respiratory Syncytial Virus Not Detected (Not Detect); SARS-CoV-2 Not Detected (Not Detect)
[2020-07-24 00:39] LABS: Amphetamine Screen,Urine Negative ng/mL (Cutoff=1000); Barbiturate Screen,Urine Negative ng/mL (Cutoff=200); Benzodiazepines Screen,Urine Positive ng/mL (Cutoff=200); Cannabinoid Screen,Urine Negative ng/mL (Cutoff = 50); Cocaine Screen,Urine Negative ng/mL (Cutoff= 300); Opiate Screen,Urine Negative ng/mL (Cutoff=300); Phencyclidine Screen,Urine Negative ng/mL (Cutoff=25)
[2020-07-24] MEDS: *HR* Heparin 5,000 UNIT/ML VIAL SQ SCH ×2 (05:28→16:05)
[2020-07-24 09:28] LABS: Mean Corpuscular HGB Conc 33.6 g/dL (31.6-35.5); Mean Corpuscular Hemoglobin 31.6 pg (28.0-33.3); Mean Corpuscular Volume 94.2 fL (83.0-100.0); Mean Platelet Volume 10.2 fL (9.4-12.4); Platelet Count 298 K/mcL (140-400); Red Blood Count 4.14 M/mcL (3.82-4.97); Red Cell Distribution Width 12.2 % (11.5-14.5); White Blood Count 5.3 K/mcL (4.3-11.1)
[2020-07-24 09:30] LABS: Hemoglobin 13.1 g/dL (11.5-15.4)
[2020-07-24 09:49] LABS: BUN/Creatinine Ratio 10 (6-26); Blood Urea Nitrogen 5 mg/dL (6-20); Calcium 9.1 mg/dL (8.6-10.3); Carbon Dioxide 30 mEq/L (23-29); Chloride 102 mEq/L (98-107); Chol/HDL Ratio 2.6 (0-4.9); Cholesterol 137 mg/dL (< 200); Glucose 92 mg/dL (70-105); HDL Cholesterol 53 mg/dL (40-59); LDL Cholesterol,Calculated 69 mg/dL (< 100); Magnesium 1.7 mg/dL (1.6-2.6); Osmolality,Calculated 277 (280-300); Potassium 4.2 mEq/L (3.5-5.1); Sodium 135 mEq/L (136-145); Triglycerides 76 mg/dL (< 150); eGFR For African Americans > 60 (> 60); eGFR For Non-African Americans > 60 (> 60)
[2020-07-24] MEDS ORDERED: Albuterol 2.5 MG/3 ML NEBULIZER IH PRN (11:19)
[2020-07-24] MEDS: Aspirin Enteric Coated 81 MG Tablet PO SCH (11:44)
[2020-07-24] MEDS ORDERED: 0.9 % Sodium Chloride 500 ML ONE (11:57)
[2020-07-24] MEDS ORDERED: 0.9 % Sodium Chloride 500 ML IVC SCH (12:00)
[2020-07-24] MEDS: *HR* Buprenorphine HCl 8 MG TAB.SUBL SL SCH (12:23)
[2020-07-24] MEDS: diazePAM 5 MG TABLET PO SCH ×3 (12:23→19:39)
[2020-07-24] MEDS ORDERED: diazePAM 5 MG TABLET PO SCH (15:00)
[2020-07-24] MEDS ORDERED: Nicotine 2 MG GUM BC PRN (20:55)
[2020-07-24] MEDS: traZODone 50 MG TABLET PO SCH (22:37)
[2020-07-25] MEDS: Nicotine 21 MG PATCH.TD24 TD SCH ×2 (02:05→20:20)
[2020-07-25 05:36] LABS: Hematocrit 40.3 % (35.3-44.9); Hemoglobin 13.5 g/dL (11.5-15.4); Mean Corpuscular HGB Conc 33.5 g/dL (31.6-35.5); Mean Corpuscular Hemoglobin 30.8 pg (28.0-33.3); Mean Corpuscular Volume 91.8 fL (83.0-100.0); Mean Platelet Volume 10.4 fL (9.4-12.4); Platelet Count 301 K/mcL (140-400); Red Blood Count 4.39 M/mcL (3.82-4.97); White Blood Count 6.6 K/mcL (4.3-11.1)
[2020-07-25 05:53] LABS: BUN/Creatinine Ratio 12 (6-26); Blood Urea Nitrogen 6 mg/dL (6-20); Calcium 9.2 mg/dL (8.6-10.3); Carbon Dioxide 30 mEq/L (23-29); Chloride 99 mEq/L (98-107); Glucose 94 mg/dL (70-105); Osmolality,Calculated 279 (280-300); Potassium 3.5 mEq/L (3.5-5.1); Sodium 136 mEq/L (136-145); eGFR For African Americans > 60 (> 60); eGFR For Non-African Americans > 60 (> 60)
[2020-07-25] MEDS: *HR* Heparin 5,000 UNIT/ML VIAL SQ SCH ×2 (05:58→18:13)
[2020-07-25] MEDS: diazePAM 5 MG TABLET PO SCH ×3 (08:23→20:08)
[2020-07-25] MEDS: Aspirin Enteric Coated 81 MG Tablet PO SCH (08:23)
[2020-07-25] MEDS: *HR* Buprenorphine HCl 8 MG TAB.SUBL SL SCH (08:24)
[2020-07-25] MEDS: Magnesium Oxide 400 MG TABLET PO SCH (08:24)
[2020-07-25] MEDS ORDERED: lisinopriL 20 MG TABLET PO SCH (09:00)
[2020-07-25] MEDS ORDERED: 0.9 % Sodium Chloride 500 ML IV SCH (11:45)
[2020-07-25] MEDS: traZODone 50 MG TABLET PO SCH (20:08)
[2020-07-26 02:54] LABS: Hematocrit 42.7 % (35.3-44.9); Hemoglobin 14.3 g/dL (11.5-15.4); Mean Corpuscular HGB Conc 33.5 g/dL (31.6-35.5); Mean Corpuscular Hemoglobin 31.2 pg (28.0-33.3); Mean Corpuscular Volume 93.2 fL (83.0-100.0); Mean Platelet Volume 10.6 fL (9.4-12.4); Platelet Count 259 K/mcL (140-400); Red Blood Count 4.58 M/mcL (3.82-4.97); Red Cell Distribution Width 11.9 % (11.5-14.5); White Blood Count 7.1 K/mcL (4.3-11.1)
[2020-07-26 03:07] LABS: BUN/Creatinine Ratio 19 (6-26); Blood Urea Nitrogen 10 mg/dL (6-20); Calcium 9.3 mg/dL (8.6-10.3); Carbon Dioxide 27 mEq/L (23-29); Chloride 98 mEq/L (98-107); Glucose 95 mg/dL (70-105); Osmolality,Calculated 277 (280-300); Sodium 134 mEq/L (136-145); eGFR For African Americans > 60 (> 60); eGFR For Non-African Americans > 60 (> 60)
[2020-07-26] MEDS: *HR* Heparin 5,000 UNIT/ML VIAL SQ SCH ×2 (05:49→18:10)
[2020-07-26] MEDS: Aspirin Enteric Coated 81 MG Tablet PO SCH (08:05)
[2020-07-26] MEDS: Magnesium Oxide 400 MG TABLET PO SCH (08:05)
[2020-07-26] MEDS: diazePAM 5 MG TABLET PO SCH ×2 (08:06→14:11)
[2020-07-26] MEDS: Nicotine 21 MG PATCH.TD24 TD SCH (08:11)
[2020-07-26] MEDS: *HR* Buprenorphine HCl 8 MG TAB.SUBL SL SCH ×2 (08:13→14:12)
[2020-07-26] MEDS ORDERED: Nicotine 14 MG PATCH.TD24 TD SCH (13:15)
[2020-07-26 15:50] VITALS: BP 112/76
== END 2020-07-26 18:26 | disposition home or self-care (01) ==
LOC: 3BNU 20:53 → EMEROOARM 20:53 → 3BNU 07-24 01:15
PROVIDERS: ADMIT Internal Medicine; ATTEND Internal Medicine

== ENCOUNTER 2020-12-24 04:05 | Inpatient (IN) ==
[2020-12-24] MEDS ORDERED: *HR* Promethazine 25 MG/ML VIAL IM PRN (06:22)
[2020-12-24] MEDS ORDERED: Acetaminophen 325 MG TABLET PO PRN (06:22)
[2020-12-24] MEDS ORDERED: Naloxone 0.4 MG/ML INJ IVP PRN ×2 (06:22→08:39)
[2020-12-24] MEDS: Ondansetron 4 MG/2 ML VIAL IVP PRN ×2 (06:37→16:07)
[2020-12-24] MEDS: Nicotine 14 MG PATCH.TD24 TD SCH (07:58)
[2020-12-24 08:04] LABS: Basophils % 0.1 %; Red Cell Distribution Width 11.6 % (11.5-14.5)
[2020-12-24 08:05] LABS: Eosinophils % 0.1 %; Hemoglobin 13.1 g/dL (11.5-15.4); Immature Granulocytes % 0.4 % (0-4); Lymphocytes # 0.8 K/mcL (0.6-4.6); Lymphocytes % 7.7 %; Mean Corpuscular Hemoglobin 30.5 pg (28.0-33.3); Mean Corpuscular Volume 81.4 fL (83.0-100.0); Monocytes # 1.2 K/mcL (0.0-1.3); Monocytes % 11.2 %; Neutrophils # 8.7 K/mcL (1.6-8.9); Platelet Count 233 K/mcL (140-400); Segmented Neutrophils % 80.5 %; White Blood Count 10.8 K/mcL (4.3-11.1)
[2020-12-24 08:29] LABS: BUN/Creatinine Ratio 18 (6-26); Blood Urea Nitrogen 9 mg/dL (6-20); Calcium 8.1 mg/dL (8.6-10.3); Carbon Dioxide 24 mEq/L (23-29); Chloride 80 mEq/L (98-107); Glucose 101 mg/dL (70-105); Magnesium 1.1 mg/dL (1.6-2.6); Osmolality,Calculated 233 (280-300); Potassium 3.3 mEq/L (3.5-5.1); Sodium 112 mEq/L (136-145); eGFR For African Americans > 60 (> 60); eGFR For Non-African Americans > 60 (> 60)
[2020-12-24] MEDS ORDERED: Potassium Chloride Elixir 20 MEQ/15 ML UDC PO ONE (08:41)
[2020-12-24] MEDS ORDERED: 0.9 % Sodium Chloride 1,000 ML IVC SCH ×3 (08:45→13:17)
[2020-12-24] MEDS ORDERED: Albuterol 2.5 MG/3 ML NEBULIZER IH PRN (09:00)
[2020-12-24] MEDS: lisinopriL 20 MG TABLET PO SCH (09:38)
[2020-12-24 10:51] LABS: Mean Corpuscular HGB Conc 37.4 g/dL (31.6-35.5)
[2020-12-24 13:07] LABS: Albumin 4.1 g/dL (3.5-5.7); BUN/Creatinine Ratio 14 (6-26); Blood Urea Nitrogen 7 mg/dL (6-20); Calcium 8.6 mg/dL (8.6-10.3); Carbon Dioxide 21 mEq/L (23-29); Chloride 86 mEq/L (98-107); Glucose 106 mg/dL (70-105); Osmolality,Calculated 240 (280-300); Phosphorous 2.3 mg/dL (2.7-4.5); Sodium 116 mEq/L (136-145); Uric Acid 1.8 mg/dL (2.3-7.6); eGFR For African Americans > 60 (> 60); eGFR For Non-African Americans > 60 (> 60)
[2020-12-24 13:14] LABS: Thyroid Stimulating Hormone 0.089 mcIU/mL (0.340-5.600)
[2020-12-24] MEDS ORDERED: D5% in Water 1,000 ML IVC SCH (15:30)
[2020-12-24] MEDS: D5% in Water 1,000 ML IVC SCH (15:57)
[2020-12-24] MEDS: diazePAM 5 MG TABLET PO SCH ×2 (16:00→20:43)
[2020-12-24] MEDS: traZODone 50 MG TABLET PO SCH (20:43)
[2020-12-24] MEDS ORDERED: diazePAM 5 MG TABLET PO SCH (21:00)
[2020-12-25] MEDS: D5% in Water 1,000 ML IVC SCH (01:02)
[2020-12-25 04:21] LABS: Basophils % 0.2 %; Eosinophils % 0.5 %; Hematocrit 35.9 % (35.3-44.9); Hemoglobin 13.2 g/dL (11.5-15.4); Immature Granulocytes % 0.4 % (0-4); Lymphocytes # 1.4 K/mcL (0.6-4.6); Lymphocytes % 24.6 %; Mean Corpuscular HGB Conc 36.8 g/dL (31.6-35.5); Mean Corpuscular Hemoglobin 30.3 pg (28.0-33.3); Mean Corpuscular Volume 82.5 fL (83.0-100.0); Mean Platelet Volume 9.9 fL (9.4-12.4); Monocytes # 0.9 K/mcL (0.0-1.3); Monocytes % 16.3 %; Neutrophils # 3.2 K/mcL (1.6-8.9); Platelet Count 225 K/mcL (140-400); Red Blood Count 4.35 M/mcL (3.82-4.97); Red Cell Distribution Width 11.7 % (11.5-14.5); White Blood Count 5.6 K/mcL (4.3-11.1)
[2020-12-25 04:44] LABS: BUN/Creatinine Ratio 13 (6-26); Blood Urea Nitrogen 7 mg/dL (6-20); Calcium 8.6 mg/dL (8.6-10.3); Carbon Dioxide 25 mEq/L (23-29); Chloride 88 mEq/L (98-107); Glucose 116 mg/dL (70-105); Magnesium 1.6 mg/dL (1.6-2.6); Osmolality,Calculated 249 (280-300); Potassium 3.2 mEq/L (3.5-5.1); Sodium 120 mEq/L (136-145); eGFR For African Americans > 60 (> 60); eGFR For Non-African Americans > 60 (> 60)
[2020-12-25 05:03] LABS: Triiodothyronine (T3) Total 1.37 ng/mL (0.87-1.78)
[2020-12-25] MEDS: *HR* Enoxaparin 40 MG/0.4 ML SYRINGE SQ SCH (05:32)
[2020-12-25] MEDS: Nicotine 14 MG PATCH.TD24 TD SCH (07:27)
[2020-12-25] MEDS: lisinopriL 20 MG TABLET PO SCH (07:27)
[2020-12-25] MEDS: diazePAM 5 MG TABLET PO SCH ×3 (07:27→20:19)
[2020-12-25 09:42] LABS: BUN/Creatinine Ratio 15 (6-26); Blood Urea Nitrogen 8 mg/dL (6-20); Calcium 8.4 mg/dL (8.6-10.3); Carbon Dioxide 24 mEq/L (23-29); Chloride 87 mEq/L (98-107); Glucose 113 mg/dL (70-105); Osmolality,Calculated 245 (280-300); Potassium 3.3 mEq/L (3.5-5.1); Sodium 118 mEq/L (136-145); eGFR For African Americans > 60 (> 60); eGFR For Non-African Americans > 60 (> 60)
[2020-12-25] MEDS: Potassium Chloride Elixir 20 MEQ/15 ML UDC PO SCH (09:50)
[2020-12-25 11:23] LABS: BUN/Creatinine Ratio 14 (6-26); Blood Urea Nitrogen 8 mg/dL (6-20); Calcium 8.8 mg/dL (8.6-10.3); Carbon Dioxide 23 mEq/L (23-29); Chloride 88 mEq/L (98-107); Glucose 78 mg/dL (70-105); Osmolality,Calculated 245 (280-300); Potassium 3.9 mEq/L (3.5-5.1); Sodium 119 mEq/L (136-145); eGFR For African Americans > 60 (> 60); eGFR For Non-African Americans > 60 (> 60)
[2020-12-25 11:31] LABS: Phosphorous 2.7 mg/dL (2.7-4.5)
[2020-12-25 13:41] LABS: BUN/Creatinine Ratio 17 (6-26); Blood Urea Nitrogen 9 mg/dL (6-20); Calcium 8.6 mg/dL (8.6-10.3); Carbon Dioxide 21 mEq/L (23-29); Chloride 89 mEq/L (98-107); Glucose 120 mg/dL (70-105); Osmolality,Calculated 250 (280-300); Sodium 120 mEq/L (136-145); eGFR For African Americans > 60 (> 60); eGFR For Non-African Americans > 60 (> 60)
[2020-12-25 14:50] LABS: Total Volume 24 Hour,Urine 3.21 Liters (0.60-1.60)
[2020-12-25 15:03] LABS: Sodium, Urine 19.4 mEq/L
[2020-12-25] MEDS: traZODone 50 MG TABLET PO SCH (22:12)
[2020-12-26 01:40] LABS: Hematocrit 34.9 % (35.3-44.9); Hemoglobin 12.7 g/dL (11.5-15.4); Mean Corpuscular HGB Conc 36.4 g/dL (31.6-35.5); Mean Corpuscular Hemoglobin 30.6 pg (28.0-33.3); Mean Corpuscular Volume 84.1 fL (83.0-100.0); Mean Platelet Volume 11.1 fL (9.4-12.4); Platelet Count 190 K/mcL (140-400); Red Blood Count 4.15 M/mcL (3.82-4.97); Red Cell Distribution Width 11.8 % (11.5-14.5)
[2020-12-26 02:02] LABS: BUN/Creatinine Ratio 20 (6-26); Blood Urea Nitrogen 9 mg/dL (6-20); Calcium 8.5 mg/dL (8.6-10.3); Carbon Dioxide 22 mEq/L (23-29); Chloride 92 mEq/L (98-107); Glucose 104 mg/dL (70-105); Osmolality,Calculated 255 (280-300); Potassium 3.5 mEq/L (3.5-5.1); Sodium 123 mEq/L (136-145); eGFR For African Americans > 60 (> 60); eGFR For Non-African Americans > 60 (> 60)
[2020-12-26 05:23] LABS: Bacteria,Urine Few per hpf (None-Few); Bilirubin,Urine Negative (Negative); Blood,Urine Negative (Negative); Clarity,Urine Clear (Clear); Color,Urine Light-Yellow (Yellow); Glucose,Urine (UA) Normal (Normal); Ketones,Urine Negative (Negative); Leukocyte Esterase,Urine Small (Negative); Nitrite,Urine Negative (Negative); Protein,Urine Negative (Neg-Trace); Specific Gravity,Urine 1.007 (1.010-1.025); Squamous Epithelial Cell,Urine Few per hpf (None-Few); Urobilinogen,Urine Normal (Normal); WBC,Urine 0-3 per hpf (0-3)
[2020-12-26 05:30] LABS: Amphetamine Screen,Urine Negative ng/mL (Cutoff=1000); Barbiturate Screen,Urine Negative ng/mL (Cutoff=200); Benzodiazepines Screen,Urine Positive ng/mL (Cutoff=200); Cannabinoid Screen,Urine Negative ng/mL (Cutoff = 50); Cocaine Screen,Urine Negative ng/mL (Cutoff= 300); Opiate Screen,Urine Negative ng/mL (Cutoff=300); Phencyclidine Screen,Urine Negative ng/mL (Cutoff=25)
[2020-12-26] MEDS: *HR* Enoxaparin 40 MG/0.4 ML SYRINGE SQ SCH (05:39)
[2020-12-26] MEDS: Potassium Chloride Elixir 20 MEQ/15 ML UDC PO SCH (08:53)
[2020-12-26] MEDS: Nicotine 14 MG PATCH.TD24 TD SCH (08:54)
[2020-12-26] MEDS: diazePAM 5 MG TABLET PO SCH ×2 (08:56→14:49)
[2020-12-26] MEDS: lisinopriL 20 MG TABLET PO SCH (08:56)
[2020-12-26 12:22] VITALS: BP 102/69
== END 2020-12-26 15:52 | disposition home or self-care (01) | DRG 641 ==
LOC: ICNU → SUATTDRO 05:31 → 2NNU 14:50 → 2ANU 12-25 19:54
PROVIDERS: ADMIT Internal Medicine; ATTEND Family Medicine

== ENCOUNTER 2021-02-13 17:02 | Inpatient (IN) ==
[2021-02-13] MEDS ORDERED: 0.9 % Sodium Chloride 1,000 ML IVC STA (17:26)
[2021-02-13 18:02] LABS: Basophils % 0.1 %
[2021-02-13 18:04] LABS: Immature Granulocytes % 0.7 % (0-4)
[2021-02-13 18:19] LABS: INR 1.2; Prothrombin Time 13.6 Seconds (9.4-12.1)
[2021-02-13 18:22] LABS: Activated Partial Thrombo Time 25.8 Seconds (26.0-36.0)
[2021-02-13 18:37] LABS: Eosinophils % 0.5 %; Hematocrit 33.6 % (35.3-44.9); Hemoglobin 13.3 g/dL (11.5-15.4); Lymphocytes # 0.7 K/mcL (0.6-4.6); Lymphocytes % 9.5 %; Mean Corpuscular Volume 80.8 fL (83.0-100.0); Mean Platelet Volume 10.5 fL (9.4-12.4); Monocytes # 0.5 K/mcL (0.0-1.3); Monocytes % 6.8 %; Neutrophils # 6.2 K/mcL (1.6-8.9); Platelet Count 273 K/mcL (140-400); Red Blood Count 4.16 M/mcL (3.82-4.97); Red Cell Distribution Width 11.9 % (11.5-14.5); Segmented Neutrophils % 82.4 %; White Blood Count 7.5 K/mcL (4.3-11.1)
[2021-02-13 18:42] LABS: Mean Corpuscular HGB Conc 39.6 g/dL (31.6-35.5)
[2021-02-13 18:46] LABS: Alanine Aminotransferase 15 Units/L (7-52); Albumin/Globulin Ratio 1.6 (1.1-2.2); Alkaline Phosphatase 99 Units/L (34-104); Aspartate Amino Transferase 51 Units/L (13-39); BUN/Creatinine Ratio 15 (6-26); Bilirubin,Direct 0.2 mg/dL (0.0-0.2); Bilirubin,Indirect 0.5 mg/dL (0.0-1.0); Bilirubin,Total 0.7 mg/dL (0.3-1.0); Blood Urea Nitrogen 10 mg/dL (6-20); Calcium 9.2 mg/dL (8.6-10.3); Carbon Dioxide 31 mEq/L (23-29); Chloride 66 mEq/L (98-107); Ethanol < 10 mg/dL (Less than 10); Globulin 2.5 g/dL (2.4-3.5); Glucose 145 mg/dL (70-105); Osmolality,Calculated 232 (280-300); Potassium 2.1 mEq/L (3.5-5.1); Sodium 110 mEq/L (136-145); Thyroid Stimulating Hormone 0.048 mcIU/mL (0.340-5.600); Total Protein 6.5 g/dL (6.4-8.9); Troponin I < 0.03 ng/mL (< 0.04); eGFR For African Americans > 60 (> 60); eGFR For Non-African Americans > 60 (> 60)
[2021-02-13] MEDS ORDERED: Potassium Chloride Elixir 20 MEQ/15 ML UDC PO ONE ×2 (18:50→22:27)
[2021-02-13] MEDS ORDERED: Magnesium Sulfate 1 GM/102 ML PIGGYBACK IVPB ONE (18:50)
[2021-02-13] MEDS ORDERED: cefTRIAXone 1,000 MG in Water for inj. (sterile) 10 ML IVP ONE (18:51)
[2021-02-13] MEDS ORDERED: Azithromycin 250 MG TABLET PO ONE (18:51)
[2021-02-13 19:47] LABS: Bilirubin,Urine Negative (Negative); Blood,Urine Negative (Negative); Clarity,Urine Clear (Clear); Color,Urine Light-Yellow (Yellow); Glucose,Urine (UA) Normal (Normal); Ketones,Urine Negative (Negative); Leukocyte Esterase,Urine Negative (Negative); Nitrite,Urine Negative (Negative); PH,Urine 6.5 pH Units (5.0-8.0); Protein,Urine Negative (Neg-Trace); Specific Gravity,Urine 1.005 (1.010-1.025); Urobilinogen,Urine Normal (Normal)
[2021-02-13 20:02] LABS: Amphetamine Screen,Urine Negative ng/mL (Cutoff=1000); Barbiturate Screen,Urine Negative ng/mL (Cutoff=200); Benzodiazepines Screen,Urine Positive ng/mL (Cutoff=200); Cannabinoid Screen,Urine Negative ng/mL (Cutoff = 50); Cocaine Screen,Urine Negative ng/mL (Cutoff= 300); Opiate Screen,Urine Negative ng/mL (Cutoff=300); Phencyclidine Screen,Urine Negative ng/mL (Cutoff=25)
[2021-02-13] MEDS ORDERED: Azithromycin 200 MG/5 ML UDC PO ONE (20:45)
[2021-02-13 21:17] LABS: BUN/Creatinine Ratio 13 (6-26); Blood Urea Nitrogen 8 mg/dL (6-20); Calcium 9.7 mg/dL (8.6-10.3); Carbon Dioxide 32 mEq/L (23-29); Chloride 70 mEq/L (98-107); Glucose 120 mg/dL (70-105); Magnesium 1.5 mg/dL (1.6-2.6); Osmolality,Calculated 236 (280-300); Potassium 2.5 mEq/L (3.5-5.1); Sodium 113 mEq/L (136-145); eGFR For African Americans > 60 (> 60); eGFR For Non-African Americans > 60 (> 60)
[2021-02-13] MEDS ORDERED: Naloxone 0.4 MG/ML INJ IVP PRN (22:14)
[2021-02-13] MEDS ORDERED: 0.9 % Sodium Chloride 1,000 ML IVC SCH (22:15)
[2021-02-13 22:40] LABS: Creatinine,Urine 43 mg/dL; Sodium, Urine < 10.0 mEq/L
[2021-02-14] MEDS ORDERED: 0.9 % Sodium Chloride 1,000 ML IVC SCH
[2021-02-14] MEDS ORDERED: *HR* LORazepam 2 MG/ML VIAL IVP ONE (00:06)
[2021-02-14] MEDS ORDERED: *HR* LORazepam 2 MG/ML VIAL ONE (00:09)
[2021-02-14] MEDS: Nicotine 21 MG PATCH.TD24 TD SCH ×2 (00:15→11:52)
[2021-02-14 04:34] LABS: BUN/Creatinine Ratio 12 (6-26); Blood Urea Nitrogen 6 mg/dL (6-20); Calcium 8.1 mg/dL (8.6-10.3); Carbon Dioxide 30 mEq/L (23-29); Chloride 87 mEq/L (98-107); Glucose 108 mg/dL (70-105); Magnesium 1.7 mg/dL (1.6-2.6); Osmolality,Calculated 252 (280-300); Phosphorous 1.7 mg/dL (2.7-4.5); Potassium 2.9 mEq/L (3.5-5.1); Sodium 122 mEq/L (136-145); eGFR For African Americans > 60 (> 60); eGFR For Non-African Americans > 60 (> 60)
[2021-02-14 04:51] LABS: Triiodothyronine (T3) Free 3.38 pg/mL (2.50-3.90)
[2021-02-14 05:44] LABS: Basophils % 0.2 %; Eosinophils # 0.1 K/mcL (0.0-0.6); Eosinophils % 1.3 %; Hematocrit 30.5 % (35.3-44.9); Hemoglobin 11.2 g/dL (11.5-15.4); Immature Granulocytes % 0.6 % (0-4); Lymphocytes # 0.9 K/mcL (0.6-4.6); Lymphocytes % 19.6 %; Mean Corpuscular HGB Conc 36.7 g/dL (31.6-35.5); Mean Corpuscular Hemoglobin 30.9 pg (28.0-33.3); Mean Platelet Volume 9.9 fL (9.4-12.4); Monocytes # 0.6 K/mcL (0.0-1.3); Monocytes % 12.9 %; Neutrophils # 3.1 K/mcL (1.6-8.9); Platelet Count 262 K/mcL (140-400); Red Blood Count 3.63 M/mcL (3.82-4.97); Red Cell Distribution Width 12.1 % (11.5-14.5); Segmented Neutrophils % 65.4 %; White Blood Count 4.7 K/mcL (4.3-11.1)
[2021-02-14] MEDS ORDERED: Potassium Phosphate 44 MEQ in 0.9 % Sodium Chloride 250 ML IVPB ONE (06:00)
[2021-02-14] MEDS: D5% in Water 1,000 ML IVC SCH ×2 (07:09→20:19)
[2021-02-14] MEDS ORDERED: Potassium Chloride Elixir 20 MEQ/15 ML UDC PO ONE (09:28)
[2021-02-14] MEDS: diazePAM 2 MG TABLET PO SCH ×2 (14:32→20:02)
[2021-02-14 16:17] LABS: BUN/Creatinine Ratio 12 (6-26); Blood Urea Nitrogen 7 mg/dL (6-20); Calcium 8.3 mg/dL (8.6-10.3); Carbon Dioxide 28 mEq/L (23-29); Chloride 87 mEq/L (98-107); Glucose 101 mg/dL (70-105); Osmolality,Calculated 254 (280-300); Potassium 3.6 mEq/L (3.5-5.1); Sodium 123 mEq/L (136-145); eGFR For African Americans > 60 (> 60); eGFR For Non-African Americans > 60 (> 60)
[2021-02-14] MEDS ORDERED: 0.9 % Sodium Chloride 500 ML IVC SCH (20:00)
[2021-02-14] MEDS: Acetaminophen 325 MG TABLET PO PRN (20:19)
[2021-02-14] MEDS ORDERED: Nicotine 21 MG PATCH.TD24 TD ONE (20:35)
[2021-02-14 20:40] LABS: BUN/Creatinine Ratio 12 (6-26); Blood Urea Nitrogen 7 mg/dL (6-20); Calcium 8.8 mg/dL (8.6-10.3); Carbon Dioxide 30 mEq/L (23-29); Chloride 89 mEq/L (98-107); Glucose 86 mg/dL (70-105); Osmolality,Calculated 261 (280-300); Potassium 3.1 mEq/L (3.5-5.1); Sodium 127 mEq/L (136-145); eGFR For African Americans > 60 (> 60); eGFR For Non-African Americans > 60 (> 60)
[2021-02-14 21:17] LABS: Acinetobacter baumannii by PCR Not Detected (Not Detect); Candida albicans by PCR Not Detected (Not Detect); Candida glabrata by PCR Not Detected (Not Detect); Candida krusei by PCR Not Detected (Not Detect); Candida parapsilosis by PCR Not Detected (Not Detect); Candida tropicalis by PCR Not Detected (Not Detect); Enterobacter cloacae Cmplx PCR Not Detected (Not Detect); Enterobacteriaceae by PCR Not Detected (Not Detect); Enterococcus by PCR Not Detected (Not Detect); Escherichia coli by PCR Not Detected (Not Detect); Klebsiella oxytoca by PCR Not Detected (Not Detect); Klebsiella pneumoniae by PCR Not Detected (Not Detect); Proteus by PCR Not Detected (Not Detect); Pseudomonas aeruginosa by PCR Not Detected (Not Detect); Serratia marcescens by PCR Not Detected (Not Detect); Staphylococcus aureus by PCR Not Detected (Not Detect); Staphylococcus by PCR Not Detected (Not Detect); Streptococcus agalactiae(B)PCR Not Detected (Not Detect); Streptococcus by PCR Not Detected (Not Detect); Streptococcus pneumoniae PCR Not Detected (Not Detect); Streptococcus pyogenes (A) PCR Not Detected (Not Detect); mecA Methicillin-Resist Gene Not Detected (Not Detect); vanA/B Vancomycin-Resist Genes Not Detected (Not Detect)
[2021-02-14] MEDS: cefTRIAXone 2,000 MG in Water for inj. (sterile) 20 ML IVP SCH (22:25)
[2021-02-15] MEDS ORDERED: Ketorolac 15 MG/ML VIAL IVP ONE (06:35)
[2021-02-15] MEDS: Nicotine 21 MG PATCH.TD24 TD SCH (07:59)
[2021-02-15] MEDS: diazePAM 2 MG TABLET PO SCH ×2 (08:00→21:46)
[2021-02-15] MEDS: D5% in Water 1,000 ML IVC SCH ×2 (10:21→23:29)
[2021-02-15] MEDS: 0.9 % Sodium Chloride 500 ML IVC SCH ×2 (10:22→16:15)
[2021-02-15 10:59] LABS: Basophils % 0.4 %; Eosinophils # 0.1 K/mcL (0.0-0.6); Eosinophils % 1.1 %; Hematocrit 31.7 % (35.3-44.9); Hemoglobin 11.5 g/dL (11.5-15.4); Immature Granulocytes % 0.8 % (0-4); Lymphocytes # 0.8 K/mcL (0.6-4.6); Lymphocytes % 14.8 %; Mean Corpuscular HGB Conc 36.3 g/dL (31.6-35.5); Mean Corpuscular Hemoglobin 31.6 pg (28.0-33.3); Mean Corpuscular Volume 87.1 fL (83.0-100.0); Mean Platelet Volume 9.5 fL (9.4-12.4); Monocytes # 0.6 K/mcL (0.0-1.3); Monocytes % 12.1 %; Neutrophils # 3.7 K/mcL (1.6-8.9); Platelet Count 276 K/mcL (140-400); Red Blood Count 3.64 M/mcL (3.82-4.97); Segmented Neutrophils % 70.8 %; White Blood Count 5.3 K/mcL (4.3-11.1)
[2021-02-15 11:13] LABS: BUN/Creatinine Ratio 9 (6-26); Blood Urea Nitrogen 6 mg/dL (6-20); Calcium 8.7 mg/dL (8.6-10.3); Carbon Dioxide 29 mEq/L (23-29); Chloride 89 mEq/L (98-107); Glucose 78 mg/dL (70-105); Osmolality,Calculated 256 (280-300); Potassium 3.4 mEq/L (3.5-5.1); Sodium 125 mEq/L (136-145); eGFR For African Americans > 60 (> 60); eGFR For Non-African Americans > 60 (> 60)
[2021-02-15] MEDS ORDERED: diazePAM 5 MG TABLET PO ONE (15:55)
[2021-02-15 18:04] LABS: BUN/Creatinine Ratio 10 (6-26); Blood Urea Nitrogen 5 mg/dL (6-20); Calcium 9.1 mg/dL (8.6-10.3); Carbon Dioxide 27 mEq/L (23-29); Chloride 89 mEq/L (98-107); Glucose 114 mg/dL (70-105); Osmolality,Calculated 260 (280-300); Potassium 3.2 mEq/L (3.5-5.1); Sodium 126 mEq/L (136-145); eGFR For African Americans > 60 (> 60); eGFR For Non-African Americans > 60 (> 60)
[2021-02-15] MEDS: cefTRIAXone 2,000 MG in Water for inj. (sterile) 20 ML IVP SCH (21:46)
[2021-02-16] MEDS: 0.9 % Sodium Chloride 500 ML IVC SCH ×4 (00:28→21:19)
[2021-02-16] MEDS: Nicotine 21 MG PATCH.TD24 TD SCH (08:12)
[2021-02-16] MEDS: diazePAM 2 MG TABLET PO SCH ×2 (08:14→21:19)
[2021-02-16 08:28] LABS: BUN/Creatinine Ratio 12 (6-26); Blood Urea Nitrogen 5 mg/dL (6-20); Calcium 8.6 mg/dL (8.6-10.3); Carbon Dioxide 26 mEq/L (23-29); Chloride 94 mEq/L (98-107); Glucose 103 mg/dL (70-105); Osmolality,Calculated 264 (280-300); Potassium 3.6 mEq/L (3.5-5.1); Sodium 128 mEq/L (136-145); eGFR For African Americans > 60 (> 60); eGFR For Non-African Americans > 60 (> 60)
[2021-02-16] MEDS: QUEtiapine Fumarate 25 MG TABLET PO PRN (09:09)
[2021-02-16] MEDS: D5% in Water 1,000 ML IVC SCH (11:34)
[2021-02-16] MEDS: cefTRIAXone 2,000 MG in Water for inj. (sterile) 20 ML IVP SCH (21:19)
[2021-02-17] MEDS: D5% in Water 1,000 ML IVC SCH ×2 (00:07→15:05)
[2021-02-17] MEDS: 0.9 % Sodium Chloride 500 ML IVC SCH ×2 (00:07→08:22)
[2021-02-17] MEDS: diazePAM 2 MG TABLET PO SCH (08:29)
[2021-02-17] MEDS: Nicotine 21 MG PATCH.TD24 TD SCH (08:29)
[2021-02-17 08:46] LABS: BUN/Creatinine Ratio 25 (6-26); Blood Urea Nitrogen 14 mg/dL (6-20); Calcium 9.5 mg/dL (8.6-10.3); Carbon Dioxide 24 mEq/L (23-29); Chloride 95 mEq/L (98-107); Glucose 81 mg/dL (70-105); Osmolality,Calculated 274 (280-300); Potassium 3.9 mEq/L (3.5-5.1); Sodium 132 mEq/L (136-145); eGFR For African Americans > 60 (> 60); eGFR For Non-African Americans > 60 (> 60)
[2021-02-17] MEDS ORDERED: diazePAM 5 MG TABLET PO SCH (15:00)
[2021-02-17] MEDS: diazePAM 5 MG TABLET PO SCH ×3 (15:04→21:02)
[2021-02-17] MEDS: QUEtiapine Fumarate 25 MG TABLET PO PRN (21:02)
[2021-02-17] MEDS: cefTRIAXone 2,000 MG in Water for inj. (sterile) 20 ML IVP SCH ×2 (21:02→21:12)
[2021-02-18 04:20] LABS: Basophils % 0.2 %; Eosinophils # 0.1 K/mcL (0.0-0.6); Eosinophils % 0.8 %; Hematocrit 31.7 % (35.3-44.9); Hemoglobin 11.8 g/dL (11.5-15.4); Immature Granulocytes % 0.8 % (0-4); Lymphocytes # 1.4 K/mcL (0.6-4.6); Mean Corpuscular Hemoglobin 32.1 pg (28.0-33.3); Mean Corpuscular Volume 86.1 fL (83.0-100.0); Mean Platelet Volume 9.1 fL (9.4-12.4); Monocytes # 1.2 K/mcL (0.0-1.3); Monocytes % 13.2 %; Neutrophils # 6.5 K/mcL (1.6-8.9); Platelet Count 267 K/mcL (140-400); Red Blood Count 3.68 M/mcL (3.82-4.97); Red Cell Distribution Width 12.3 % (11.5-14.5); White Blood Count 9.3 K/mcL (4.3-11.1)
[2021-02-18 04:22] LABS: Mean Corpuscular HGB Conc 37.2 g/dL (31.6-35.5)
[2021-02-18 04:43] LABS: BUN/Creatinine Ratio 33 (6-26); Blood Urea Nitrogen 15 mg/dL (6-20); Carbon Dioxide 25 mEq/L (23-29); Chloride 96 mEq/L (98-107); Glucose 103 mg/dL (70-105); Osmolality,Calculated 273 (280-300); Potassium 3.5 mEq/L (3.5-5.1); Sodium 131 mEq/L (136-145); eGFR For African Americans > 60 (> 60); eGFR For Non-African Americans > 60 (> 60)
[2021-02-18] MEDS: 0.9 % Sodium Chloride 500 ML IVC SCH ×5 (07:35→14:36)
[2021-02-18] MEDS: D5% in Water 1,000 ML IVC SCH ×2 (07:36→14:36)
[2021-02-18] MEDS: Nicotine 21 MG PATCH.TD24 TD SCH (09:25)
[2021-02-18] MEDS: diazePAM 5 MG TABLET PO SCH ×2 (09:25→14:41)
[2021-02-18] MEDS: cefTRIAXone 2,000 MG in Water for inj. (sterile) 20 ML IVP SCH (20:13)
[2021-02-19] MEDS: diazePAM 5 MG TABLET PO SCH ×3 (01:02→17:38)
[2021-02-19 06:21] LABS: Basophils % 0.3 %; Eosinophils % 0.4 %; Hematocrit 32.4 % (35.3-44.9); Hemoglobin 11.5 g/dL (11.5-15.4); Immature Granulocytes % 0.7 % (0-4); Lymphocytes # 1.4 K/mcL (0.6-4.6); Lymphocytes % 20.5 %; Mean Corpuscular HGB Conc 35.5 g/dL (31.6-35.5); Mean Corpuscular Hemoglobin 32.3 pg (28.0-33.3); Mean Platelet Volume 9.3 fL (9.4-12.4); Monocytes # 0.9 K/mcL (0.0-1.3); Monocytes % 12.6 %; Neutrophils # 4.5 K/mcL (1.6-8.9); Platelet Count 236 K/mcL (140-400); Red Blood Count 3.56 M/mcL (3.82-4.97); Red Cell Distribution Width 12.8 % (11.5-14.5); Segmented Neutrophils % 65.5 %; White Blood Count 6.8 K/mcL (4.3-11.1)
[2021-02-19 06:44] LABS: BUN/Creatinine Ratio 40 (6-26); Blood Urea Nitrogen 19 mg/dL (6-20); Carbon Dioxide 27 mEq/L (23-29); Chloride 100 mEq/L (98-107); Glucose 94 mg/dL (70-105); Osmolality,Calculated 284 (280-300); Potassium 3.7 mEq/L (3.5-5.1); Sodium 136 mEq/L (136-145); eGFR For African Americans > 60 (> 60); eGFR For Non-African Americans > 60 (> 60)
[2021-02-19] MEDS: Nicotine 21 MG PATCH.TD24 TD SCH (08:53)
[2021-02-19] MEDS: QUEtiapine Fumarate 25 MG TABLET PO SCH ×2 (15:02→15:51)
[2021-02-19] MEDS ORDERED: diazePAM 10 MG TABLET PO ONE (15:32)
[2021-02-19] MEDS ORDERED: *HR* LORazepam 2 MG/ML VIAL IM STA (17:13)
[2021-02-19] MEDS ORDERED: Haloperidol Lactate 5 MG/ML VIAL IM ONE ×2 (17:13→17:48)
[2021-02-19] MEDS ORDERED: *HR* LORazepam 2 MG/ML VIAL IM PRN (18:56)
[2021-02-19] MEDS ORDERED: Haloperidol Lactate 5 MG/ML VIAL IM PRN (18:56)
[2021-02-20] MEDS: diazePAM 5 MG TABLET PO SCH ×4 (05:33→20:27)
[2021-02-20] MEDS: QUEtiapine Fumarate 25 MG TABLET PO SCH ×4 (05:33→20:28)
[2021-02-20 05:38] LABS: Basophils % 0.4 %; Eosinophils # 0.1 K/mcL (0.0-0.6); Eosinophils % 0.7 %; Hematocrit 32.2 % (35.3-44.9); Hemoglobin 11.1 g/dL (11.5-15.4); Immature Granulocytes % 0.9 % (0-4); Mean Corpuscular HGB Conc 34.5 g/dL (31.6-35.5); Mean Corpuscular Hemoglobin 30.9 pg (28.0-33.3); Mean Corpuscular Volume 89.7 fL (83.0-100.0); Monocytes # 0.7 K/mcL (0.0-1.3); Monocytes % 9.4 %; Neutrophils # 5.1 K/mcL (1.6-8.9); Platelet Count 221 K/mcL (140-400); Red Blood Count 3.59 M/mcL (3.82-4.97); Red Cell Distribution Width 12.4 % (11.5-14.5); Segmented Neutrophils % 74.6 %; White Blood Count 6.9 K/mcL (4.3-11.1)
[2021-02-20] MEDS: Nicotine 21 MG PATCH.TD24 TD SCH (05:57)
[2021-02-20 07:32] LABS: BUN/Creatinine Ratio 32 (6-26); Blood Urea Nitrogen 13 mg/dL (6-20); Calcium 8.8 mg/dL (8.6-10.3); Carbon Dioxide 28 mEq/L (23-29); Chloride 102 mEq/L (98-107); Glucose 97 mg/dL (70-105); Osmolality,Calculated 284 (280-300); Potassium 3.5 mEq/L (3.5-5.1); Sodium 137 mEq/L (136-145); eGFR For African Americans > 60 (> 60); eGFR For Non-African Americans > 60 (> 60)
[2021-02-20] MEDS: 0.9 % Sodium Chloride 500 ML IVC SCH ×2 (07:41→08:29)
[2021-02-20] MEDS: D5% in Water 1,000 ML IVC SCH (07:41)
[2021-02-20] MEDS: Acetaminophen 325 MG TABLET PO PRN (14:54)
[2021-02-20] MEDS ORDERED: QUEtiapine Fumarate 25 MG TABLET PO SCH (21:00)
[2021-02-21 01:05] LABS: Basophils % 0.4 %; Eosinophils # 0.1 K/mcL (0.0-0.6); Eosinophils % 1.4 %; Hematocrit 28.8 % (35.3-44.9); Hemoglobin 10.5 g/dL (11.5-15.4); Immature Granulocytes % 0.8 % (0-4); Lymphocytes # 1.3 K/mcL (0.6-4.6); Lymphocytes % 24.8 %; Mean Corpuscular HGB Conc 36.5 g/dL (31.6-35.5); Mean Corpuscular Hemoglobin 32.2 pg (28.0-33.3); Mean Corpuscular Volume 88.3 fL (83.0-100.0); Mean Platelet Volume 9.2 fL (9.4-12.4); Monocytes # 0.6 K/mcL (0.0-1.3); Monocytes % 10.6 %; Neutrophils # 3.2 K/mcL (1.6-8.9); Platelet Count 216 K/mcL (140-400); Red Blood Count 3.26 M/mcL (3.82-4.97); Red Cell Distribution Width 12.6 % (11.5-14.5); White Blood Count 5.2 K/mcL (4.3-11.1)
[2021-02-21 01:25] LABS: BUN/Creatinine Ratio 15 (6-26); Blood Urea Nitrogen 7 mg/dL (6-20); Calcium 8.6 mg/dL (8.6-10.3); Carbon Dioxide 27 mEq/L (23-29); Chloride 101 mEq/L (98-107); Glucose 101 mg/dL (70-105); Osmolality,Calculated 282 (280-300); Sodium 137 mEq/L (136-145); eGFR For African Americans > 60 (> 60); eGFR For Non-African Americans > 60 (> 60)
[2021-02-21] MEDS: diazePAM 5 MG TABLET PO SCH ×3 (09:41→20:34)
[2021-02-21] MEDS: Nicotine 21 MG PATCH.TD24 TD SCH (09:41)
[2021-02-21] MEDS ORDERED: Potassium Chloride Elixir 20 MEQ/15 ML UDC PO ONE (16:52)
[2021-02-21] MEDS: Acetaminophen 325 MG TABLET PO PRN (17:14)
[2021-02-21] MEDS: QUEtiapine Fumarate 25 MG TABLET PO SCH (20:34)
[2021-02-22 06:49] LABS: Basophils % 0.4 %; Eosinophils # 0.1 K/mcL (0.0-0.6); Eosinophils % 1.5 %; Hematocrit 30.3 % (35.3-44.9); Hemoglobin 10.6 g/dL (11.5-15.4); Immature Granulocytes % 0.4 % (0-4); Lymphocytes # 1.2 K/mcL (0.6-4.6); Lymphocytes % 24.4 %; Mean Corpuscular Hemoglobin 31.5 pg (28.0-33.3); Mean Corpuscular Volume 90.2 fL (83.0-100.0); Mean Platelet Volume 9.4 fL (9.4-12.4); Monocytes # 0.4 K/mcL (0.0-1.3); Monocytes % 8.6 %; Neutrophils # 3.1 K/mcL (1.6-8.9); Platelet Count 241 K/mcL (140-400); Red Blood Count 3.36 M/mcL (3.82-4.97); Red Cell Distribution Width 12.9 % (11.5-14.5); Segmented Neutrophils % 64.7 %; White Blood Count 4.8 K/mcL (4.3-11.1)
[2021-02-22 07:10] LABS: BUN/Creatinine Ratio 17 (6-26); Blood Urea Nitrogen 8 mg/dL (6-20); Calcium 8.8 mg/dL (8.6-10.3); Carbon Dioxide 27 mEq/L (23-29); Chloride 105 mEq/L (98-107); Glucose 80 mg/dL (70-105); Magnesium 1.4 mg/dL (1.6-2.6); Osmolality,Calculated 283 (280-300); Potassium 3.8 mEq/L (3.5-5.1); Sodium 138 mEq/L (136-145); eGFR For African Americans > 60 (> 60); eGFR For Non-African Americans > 60 (> 60)
[2021-02-22] MEDS ORDERED: Magnesium Oxide 400 MG TABLET PO ONE (08:56)
[2021-02-22] MEDS: diazePAM 5 MG TABLET PO SCH ×3 (09:15→20:49)
[2021-02-22] MEDS: Nicotine 21 MG PATCH.TD24 TD SCH (09:15)
[2021-02-22] MEDS: QUEtiapine Fumarate 25 MG TABLET PO SCH (20:49)
[2021-02-23] MEDS: diazePAM 5 MG TABLET PO SCH ×4 (00:50→20:18)
[2021-02-23] MEDS: QUEtiapine Fumarate 25 MG TABLET PO SCH ×2 (00:50→20:18)
[2021-02-23] MEDS: Nicotine 21 MG PATCH.TD24 TD SCH (09:23)
[2021-02-23] MEDS: Acetaminophen 325 MG TABLET PO PRN (20:20)
[2021-02-24 07:37] VITALS: TEMP 97.9
[2021-02-24] MEDS ORDERED: haloperidoL 1 MG TABLET PO PRN (08:10)
[2021-02-24] MEDS ORDERED: *HR* LORazepam Oral Conc 2 MG/ML SL PRN (08:10)
[2021-02-24] MEDS: Nicotine 21 MG PATCH.TD24 TD SCH (09:56)
[2021-02-24] MEDS: diazePAM 5 MG TABLET PO SCH ×2 (09:58→14:54)
[2021-02-24 12:05] VITALS: BP 145/87; PULSE 90; O2SAT 94
[2021-02-24] MEDS ORDERED: Haloperidol Lactate 5 MG/ML VIAL IM ONE (16:30)
== END 2021-02-24 18:13 | disposition home or self-care (01) | DRG 640 ==
LOC: 2NNU 17:02 → EMEROOARM 17:02 → 2NNU 21:15 → SUATTDRO 02-14 16:59 → 3ANU 02-17 15:13
PROVIDERS: ADMIT Internal Medicine; ATTEND Student in an Organized Health Care Education/Training Program